=== PATIENT | female | born 1955 | race Caucasian/White ===

== ENCOUNTER 2021-09-11 05:29 | Inpatient (IN) ==
[2021-09-11] MEDS ORDERED: ALUM/MAG/SIMETH/LIDO VISC 1:1 30 ML BOTTLE PO ONE (06:30)
[2021-09-11] MEDS ORDERED: ALUM/MAG/SIMETH/LIDO VISC 1:1 30 ML BOTTLE PO STA (06:30)
[2021-09-11 06:56] LABS: Basophils % 0.2 % (0.0-0.8); Eosinophils # 0.1 10*3/uL (0.0-0.87); Eosinophils % 0.6 % (0.00-10.9); Hematocrit 45.3 VOL% (35.7-47.0); Hemoglobin 15.2 GM/DL (12.0-16.0); Immature Granulocytes % 0.4 %; Immature Granulocytes Absolute 0.04 #; Lymphocytes # 1.8 10*3/uL (1.4-4.0); Lymphocytes % 16.5 % (21.3-54.2); Mean Corpuscular HGB Conc 33.6 GM/DL (32-36); Mean Corpuscular Volume 100.4 FL (87-102); Mean Platelet Volume 10.2 FL (9.6-12.0); Monocytes % 7.1 % (1.7-12.7); Neutrophils % 75.2 % (38.7-73.9); Platelet Count 232 T/CUMM (130-400); Red Blood Count 4.51 MC/CUMM (3.8-5.5); Red Cell Distribution Width 13.6 % (9.3-17.3); White Blood Count 10.8 T/CUMM (4-12)
[2021-09-11 07:01] LABS: Amorphous Crystals,Urine Occasional /HPF (Few); Mucus,Urine Many /LPF (Occasional); RBC,Urine 7 /HPF (0-4); Squamous Epithelial Cell,Urine Occasional /HPF (0-10)
[2021-09-11 07:02] LABS: Bilirubin,Urine Small mg/dL (Negative); Blood, Urine Small mg/dL (Negative); Glucose,Urine (UA) Negative (Negative); Ketones,Urine 1+ mg/dL (Negative); Nitrite,Urine Negative (Negative); Protein,Urine 1+ mg/dL (Negative); Urine Appearance Slightly Cloudy (Clear); Urine Color Yellow (Yellow); Urine Specific Gravity 1.025 (1.001-1.035); Urine Urobilinogen 0.2 eU/dL (<2.0)
[2021-09-11 07:08] LABS: Partial Thromboplastin Time 27.1 SECS (23.8-32.1)
[2021-09-11] MEDS ORDERED: HYDROmorphone 1 MG/1 ML SYRINGE IV STA (07:10)
[2021-09-11] MEDS ORDERED: ONDANSETRON 4 MG/2 ML VIAL IV STA ×2 (07:12→09:50)
[2021-09-11] MEDS ORDERED: ONDANSETRON 4 MG/2 ML VIAL ONE (07:14)
[2021-09-11 07:16] LABS: Albumin 3.8 G/DL (3.4-5.0); Bilirubin,Total 0.6 MG/DL (0.20-1.00); Calcium 9.8 MG/DL (8.5-10.1); Osmolality,Calculated 270.2 MOS/KG (273-304); Potassium 3.7 MMOL/L (3.5-5.1); Total Protein 7.9 G/DL (6.4-8.2)
[2021-09-11] MEDS ORDERED: PANTOPRAZOLE 40 MG VIAL IV STA (09:50)
[2021-09-11] MEDS ORDERED: cefTRIAXone 1,000 MG in SODIUM CHLORIDE 0.9% 100 ML IV STA (12:31)
[2021-09-11] MEDS ORDERED: MORPHINE 2 MG/1 ML SYRINGE IV PRN (12:49)
[2021-09-11] MEDS ORDERED: ACETAMINOPHEN 325 MG TABLET PO PRN (12:49)
[2021-09-11] MEDS ORDERED: MAGNESIUM SULF RIDER 2 GM/50 ML PREMIX IV PRN (12:49)
[2021-09-11] MEDS ORDERED: MAGNESIUM SULF RIDER 4 GM/100 ML PREMIX IV PRN (12:49)
[2021-09-11] MEDS ORDERED: DEXTROSE 10% 25 GM/250 ML BAG IV PRN (12:49)
[2021-09-11] MEDS ORDERED: GLUCAGON 1 MG VIAL IM PRN (12:49)
[2021-09-11] MEDS ORDERED: SODIUM CHLORIDE 0.9% 1,000 ML IV SCH (13:00)
[2021-09-11] MEDS ORDERED: hydrALAZINE 20 MG/1 ML VIAL IV PRN (13:21)
[2021-09-11] MEDS ORDERED: NICOTINE 21 MG/24 HR PATCH TRANSDERM PRN (13:24)
[2021-09-11] MEDS ORDERED: ENOXAPARIN 40 MG/0.4 ML SYRINGE SUBCUT SCH (14:00)
[2021-09-11] MEDS: HYDROmorphone 1 MG/1 ML SYRINGE IV PRN ×2 (14:21→21:25)
[2021-09-11] MEDS: metroNIDAZOLE INJ 500 MG/100 ML PREMIX IV SCH ×2 (14:23→21:29)
[2021-09-11] MEDS: SODIUM CHLOR 0.9% KCL 20 MEQ 20 MEQ/1,000 ML BAG IV SCH ×2 (16:55→17:02)
[2021-09-11] MEDS: ONDANSETRON 4 MG/2 ML VIAL IV PRN (17:37)
[2021-09-12] MEDS: SODIUM CHLOR 0.9% KCL 20 MEQ 20 MEQ/1,000 ML BAG IV SCH ×4 (00:06→21:30)
[2021-09-12] MEDS: metroNIDAZOLE INJ 500 MG/100 ML PREMIX IV SCH ×4 (01:45→21:15)
[2021-09-12] MEDS: HYDROmorphone 1 MG/1 ML SYRINGE IV PRN ×2 (05:30→13:25)
[2021-09-12 05:38] LABS: Basophils % 0.4 % (0.0-0.8); Eosinophils # 0.2 10*3/uL (0.0-0.87); Eosinophils % 2.3 % (0.00-10.9); Hematocrit 39.7 VOL% (35.7-47.0); Immature Granulocytes % 0.3 %; Immature Granulocytes Absolute 0.03 #; Lymphocytes # 2.8 10*3/uL (1.4-4.0); Lymphocytes % 27.7 % (21.3-54.2); Mean Corpuscular HGB Conc 32.2 GM/DL (32-36); Mean Corpuscular Volume 105.3 FL (87-102); Monocytes % 9.5 % (1.7-12.7); Neutrophils % 59.8 % (38.7-73.9); Platelet Count 208 T/CUMM (130-400); Red Blood Count 3.77 MC/CUMM (3.8-5.5); Red Cell Distribution Width 13.8 % (9.3-17.3)
[2021-09-12 05:40] LABS: Hemoglobin 12.8 GM/DL (12.0-16.0)
[2021-09-12] MEDS: ONDANSETRON 4 MG/2 ML VIAL IV PRN ×2 (05:40→13:25)
[2021-09-12 05:47] LABS: Calcium 8.6 MG/DL (8.5-10.1); Potassium 4.6 MMOL/L (3.5-5.1)
[2021-09-12] MEDS ORDERED: PANTOPRAZOLE 40 MG TABLET PO SCH (09:00)
[2021-09-12] MEDS: CHOLECALCIFEROL 5,000 UNIT TABLET PO SCH (09:31)
[2021-09-12] MEDS: FOLIC ACID 1 MG TABLET PO SCH (09:31)
[2021-09-12] MEDS: MULTIVITAMIN (BEROCCA) TABLET PO SCH (09:31)
[2021-09-12] MEDS: THIAMINE 100 MG TABLET PO SCH (09:31)
[2021-09-12] MEDS: ESCITALOPRAM 10 MG TABLET PO SCH (09:31)
[2021-09-12] MEDS: cefTRIAXone 2,000 MG in SODIUM CHLORIDE 0.9% 100 ML IV SCH (13:24)
[2021-09-12] MEDS ORDERED: diphenhydrAMINE 50 MG/1 ML VIAL IV PRN (14:19)
[2021-09-12] MEDS: ATORVASTATIN 40 MG TABLET PO SCH (16:23)
[2021-09-12] MEDS: PANTOPRAZOLE 40 MG TABLET PO SCH (21:18)
[2021-09-13] MEDS: metroNIDAZOLE INJ 500 MG/100 ML PREMIX IV SCH ×4 (02:15→20:41)
[2021-09-13] MEDS ORDERED: LACTATED RINGERS 1,000 ML IV SCH (07:30)
[2021-09-13 07:44] LABS: Basophils % 0.4 % (0.0-0.8); Eosinophils # 0.2 10*3/uL (0.0-0.87); Hematocrit 37.5 VOL% (35.7-47.0); Hemoglobin 12.3 GM/DL (12.0-16.0); Immature Granulocytes % 0.3 %; Immature Granulocytes Absolute 0.02 #; Lymphocytes # 1.9 10*3/uL (1.4-4.0); Lymphocytes % 26.4 % (21.3-54.2); Mean Corpuscular HGB Conc 32.8 GM/DL (32-36); Mean Corpuscular Volume 103.6 FL (87-102); Neutrophils % 60.9 % (38.7-73.9); Platelet Count 182 T/CUMM (130-400); Red Blood Count 3.62 MC/CUMM (3.8-5.5); Red Cell Distribution Width 13.7 % (9.3-17.3)
[2021-09-13 08:26] LABS: Albumin 2.9 G/DL (3.4-5.0); Bilirubin,Total 0.4 MG/DL (0.20-1.00); Calcium 8.6 MG/DL (8.5-10.1); Osmolality,Calculated 272.7 MOS/KG (273-304); Total Protein 6.3 G/DL (6.4-8.2)
[2021-09-13] MEDS ORDERED: LIDOCAINE 2% 5 ML VIAL ONE (10:32)
[2021-09-13] MEDS ORDERED: propofoL 200 MG/20 ML VIAL IV ONE (10:32)
[2021-09-13] MEDS: SODIUM CHLOR 0.9% KCL 20 MEQ 20 MEQ/1,000 ML BAG IV SCH ×2 (10:37→15:24)
[2021-09-13] MEDS: PANTOPRAZOLE 40 MG TABLET PO SCH ×2 (12:10→20:40)
[2021-09-13] MEDS: FOLIC ACID 1 MG TABLET PO SCH (14:11)
[2021-09-13] MEDS: MULTIVITAMIN (BEROCCA) TABLET PO SCH (14:11)
[2021-09-13] MEDS: ESCITALOPRAM 10 MG TABLET PO SCH (14:11)
[2021-09-13] MEDS: THIAMINE 100 MG TABLET PO SCH (14:11)
[2021-09-13] MEDS: CHOLECALCIFEROL 5,000 UNIT TABLET PO SCH (14:11)
[2021-09-13] MEDS: cefTRIAXone 2,000 MG in SODIUM CHLORIDE 0.9% 100 ML IV SCH (14:23)
[2021-09-13] MEDS: ATORVASTATIN 40 MG TABLET PO SCH (17:31)
[2021-09-14] MEDS: metroNIDAZOLE INJ 500 MG/100 ML PREMIX IV SCH ×3 (02:30→13:44)
[2021-09-14 06:06] LABS: Basophils % 0.5 % (0.0-0.8); Eosinophils # 0.3 10*3/uL (0.0-0.87); Hematocrit 38.6 VOL% (35.7-47.0); Hemoglobin 12.9 GM/DL (12.0-16.0); Immature Granulocytes % 0.2 %; Immature Granulocytes Absolute 0.01 #; Lymphocytes # 1.6 10*3/uL (1.4-4.0); Lymphocytes % 24.9 % (21.3-54.2); Mean Corpuscular HGB Conc 33.4 GM/DL (32-36); Mean Corpuscular Volume 101.3 FL (87-102); Mean Platelet Volume 10.4 FL (9.6-12.0); Neutrophils % 59.4 % (38.7-73.9); Platelet Count 193 T/CUMM (130-400); Red Blood Count 3.81 MC/CUMM (3.8-5.5); Red Cell Distribution Width 13.5 % (9.3-17.3); White Blood Count 6.2 T/CUMM (4-12)
[2021-09-14 06:27] LABS: Calcium 8.8 MG/DL (8.5-10.1); Osmolality,Calculated 274.5 MOS/KG (273-304); Potassium 3.7 MMOL/L (3.5-5.1)
[2021-09-14] MEDS: CHOLECALCIFEROL 5,000 UNIT TABLET PO SCH (08:31)
[2021-09-14] MEDS: MULTIVITAMIN (BEROCCA) TABLET PO SCH (08:31)
[2021-09-14] MEDS: ESCITALOPRAM 10 MG TABLET PO SCH (08:32)
[2021-09-14] MEDS: PANTOPRAZOLE 40 MG TABLET PO SCH (08:32)
[2021-09-14] MEDS: FOLIC ACID 1 MG TABLET PO SCH (08:32)
[2021-09-14] MEDS: THIAMINE 100 MG TABLET PO SCH (08:32)
[2021-09-14 11:59] VITALS: BP 144/67
[2021-09-14] MEDS: cefTRIAXone 2,000 MG in SODIUM CHLORIDE 0.9% 100 ML IV SCH (13:44)
== END 2021-09-14 14:50 | disposition home or self-care (01) | DRG 392 ==
LOC: N.ED 05:29 → N.EDINP 05:29 → SUATTDRO 12:49 → N.3E 14:09
PROVIDERS: ADMIT Phlebology; ATTEND Internal Medicine